=== PATIENT | female | born 1975 | race Two or more races ===

== ENCOUNTER 2019-05-15 13:50 | Emergency (ER) | payer OTHER ==
[~2019-05-15] VITALS: Ht 165.1 cm; Wt 57.6 kg
[~2019-05-15 13:50] MED LIST: AMOX1TAB12 PO; SYNTHROID50 MCG PO
== END 2019-05-15 18:18 | disposition home or self-care (01) ==
LOC: ER 13:50
DX: G43.909 Migraine, unspecified, not intractable, without status migrainosus (principal)

== ENCOUNTER 2019-08-04 10:09 | Emergency (ER) | payer OTHER ==
[~2019-08-04] VITALS: Ht 165.1 cm; Wt 58.1 kg
[2019-08-04] MEDS ORDERED: SYNTHROID50 MCG PO (10:37)
== END 2019-08-04 13:28 | disposition home or self-care (01) ==
LOC: ER 10:09
DX: M54.5 Low back pain (principal)

== ENCOUNTER 2019-09-12 19:49 | Emergency (ER) | payer OTHER ==
[~2019-09-12] VITALS: Ht 165.1 cm; Wt 58.5 kg
== END 2019-09-12 22:00 | disposition home or self-care (01) ==
LOC: ER 19:49
DX: R00.2 Palpitations (principal)

== ENCOUNTER 2021-02-27 15:15 | Emergency (ER) | payer OTHER ==
[~2021-02-27] VITALS: Ht 165.1 cm; Wt 60.3 kg
[2021-02-27] MEDS ORDERED: SYNTHROID (15:28)
[2021-02-27] MEDS ORDERED: IBU800 MG PO (18:47)
[2021-02-27] MEDS ORDERED: CYCLOBENZAPRINE10 MG PO (18:47)
[2021-02-27] MEDS ORDERED: NORFLEX100MG PO (18:47)
== END 2021-02-27 20:33 | disposition home or self-care (01) ==
LOC: ER 15:15
DX: M54.2 Cervicalgia (principal)

== ENCOUNTER 2021-06-15 10:27 | Outpatient (CLI) | payer OTHER ==
[~2021-06-15 10:27] MED LIST changes: +CYCLOBENZAPRINE10 MG PO; +IBU800 MG PO; +NORFLEX100MG PO; +SYNTHROID
== END 2021-06-15 11:03 | disposition home or self-care (01) ==
LOC: MAMO-SONO 10:27
PROVIDERS: ATTEND Obstetrics & Gynecology Maternal & Fetal Medicine
DX: N60.11 Diffuse cystic mastopathy of right breast (principal); N60.12 Diffuse cystic mastopathy of left breast; Z12.31 Encounter for screening mammogram for malignant neoplasm of breast; N64.4 Mastodynia; E04.1 Nontoxic single thyroid nodule

== ENCOUNTER 2021-12-27 11:25 | Outpatient (CLI) | payer OTHER | END 2021-12-27 11:35 | disposition home or self-care (01) | LOC: RAD 11:25 | PROVIDERS: ATTEND Internal Medicine | DX: M15.0 Primary generalized (osteo)arthritis (principal); M25.551 Pain in right hip ==

== ENCOUNTER 2022-04-22 20:27 | Emergency (ER) | payer OTHER ==
[~2022-04-22] VITALS: Ht 165.1 cm; Wt 61.2 kg
[2022-04-22] MEDS ORDERED: SYNTHROID50 MCG (20:44)
[2022-04-22] MEDS ORDERED: HYDROCORTISONE15 G3 TOP (21:40)
[2022-04-22] MEDS ORDERED: ZYRTEC10 M3 PO (21:40)
== END 2022-04-22 21:52 | disposition home or self-care (01) ==
LOC: ER 20:27
DX: R21 Rash and other nonspecific skin eruption (principal); E03.9 Hypothyroidism, unspecified

== ENCOUNTER 2022-09-04 20:31 | Emergency (ER) | payer OTHER ==
[~2022-09-04] VITALS: Ht 165.1 cm; Wt 61.2 kg
[~2022-09-04 20:31] MED LIST changes: +HYDROCORTISONE15 G3 TOP; +SYNTHROID50 MCG; +ZYRTEC10 M3 PO
[2022-09-04] MEDS ORDERED: AMOX-CLAV 875-1 EAC1 PO (23:23)
== END 2022-09-05 00:23 | disposition home or self-care (01) ==
LOC: ER 20:31
DX: J04.0 Acute laryngitis (principal); J02.0 Streptococcal pharyngitis; Z20.822 Contact with and (suspected) exposure to COVID-19

== ENCOUNTER 2022-09-07 14:11 | Outpatient (CLI) | payer OTHER ==
[~2022-09-07 14:11] MED LIST changes: +AMOX-CLAV 875-1 EAC1 PO
== END 2022-09-07 14:21 | disposition home or self-care (01) ==
LOC: RAD 14:11
PROVIDERS: ATTEND Internal Medicine
DX: J44.1 Chronic obstructive pulmonary disease with (acute) exacerbation (principal); J01.10 Acute frontal sinusitis, unspecified